=== PATIENT | male | born 1955 ===

== ENCOUNTER 2019-03-03 11:04 | Emergency (ER) | payer OTHER ==
--- NOTE | 2019-03-03 11:55 | UC ---
Eye Complaint HPI - HPI Summary HPI Summary: 64-year-old male with a history of glaucoma and laser eye surgery presents with right eye pain and redness. Patient reports intermittent sharp pain to his right eye. No blurry vision, no tearing. No trauma. Patient takes eyedrops for glaucoma. Patient states his pressures were last checked in October and they' re fine. Patient has an appointment with Dr. Sandoval on Wednesday. Wears corrective glasses - History of Current Complaint Chief Complaint: UCEye Stated Complaint: RT EYE DISCOMFORT Time Seen by Provider: 03/03/19 11:39 Pain Intensity: 2 - Allergies/Home Medications Allergies/Adverse Reactions: Allergies Allergy/AdvReac Type Severity Reaction Status Date / Time steroids Allergy See Comment Uncoded 03/03/19 11:32 Home Medications: Home Medications Rosuvastatin (NF) [Crestor (NF)] 5 mg PO 1700 03/03/19 [History Confirmed ] Telmisartan 20 mg PO 03/03/19 [History] Timolol 0.5% OPTH.BERN* [Timoptic 0.5% Opth*] 1 drop BOTH EYES BID 03/03/19 [ History Confirmed 03/03/19] Travoprost 0.004% (NF) [Travatan Z (NF)] 1 drop BOTH EYES BEDTIME 03/03/19 [ History Confirmed 03/03/19] PMH/Surg Hx/FS Hx/Imm Hx - Additional Past Medical History Additional PMH: glaucoma Previously Healthy: Yes - Surgical History Surgical History: Yes [facility] - Family History Known Family History: Positive: Non-Contributory - Social History Alcohol Use: Rare Substance Use Type: None Smoking Status (MU): Never Smoked Tobacco Type: Smokeless Tobacco Amount Used/How Often: daily Review of Systems All Other Systems Reviewed And Are Negative: Yes Eyes: Positive: Eye Redness, Other - eye pain Physical Exam - Summary Physical Exam Summary: General: Well appearing, no distress HEENT: R conjunctival injection, PERRL, EOMI Cardiovascular: Skin is well perfused Pulmonary: No respiratory distress, no tachypnea Abdomen: Non-distended Skin: Warm, pink, dry Psych: Normal affect Neuro: A&Ox3 Vital Signs: Initial Vital Signs Temp 37.1 C 03/03/19 11:25 Pulse 86 03/03/19 11:25 Resp 18 03/03/19 11:25 BP 170/103 03/03/19 11:25 Pulse Ox 100 03/03/19 11:25 Eye Complaint Course/Dx - Course Course Of Treatment: 64-year-old gentleman with a history of glaucoma and laser surgery presents with intermittent right eye pain for 1 day Discussed with patient that we have limited resources here and due to his complex ophthalmologic history it was best to be seen in Dr. Sandoval's office. Spoke with the ampoule filler and sealer that Dr. Sandoval's office who is happy to see patient. - Differential Dx/Diagnosis Provider Diagnosis: Eye pain, Glaucoma Discharge - Sign-Out/Discharge Documenting (check all that apply): Patient Departure All imaging exams completed and their final reports reviewed: No Studies - Discharge Plan Condition: Stable Disposition: HOME Patient Education Materials: Eye Pain (ED) Referrals: No Primary Care Phys,NOPCP [Primary Care Provider] - Additional Instructions: Please go to Dr. Sandoval's office for your eye pain - Billing Disposition and Condition Condition: STABLE Disposition: Home
== END 2019-03-03 11:51 | disposition home or self-care (01) ==
LOC: UCEAST 11:04
DX: H57.11 Ocular pain, right eye (principal); H40.9 Unspecified glaucoma
CPT/HCPCS: 99201; G0463